=== PATIENT | male | born 1970 | race Hispanic/Latino ===

== ENCOUNTER 2016-11-05 15:10 | Emergency (ER) | payer BC ==
[2016-11-05 15:18] VITALS: BMI 25.1
[2016-11-05 15:21] VITALS: BP 125/81; PULSE 70; RESP 18; TEMP 97.6; O2SAT 98
--- NOTE | 2016-11-05 15:26 | ED PDOC ---
Arrival/HPI - General Chief Complaint: Back Pain Time Seen by Provider: 11/05/16 15:19 Historian: Patient - History of Present Illness Narrative History of Present Illness (Text): 11/05/16 15:23 46yo male present with complaint of lower back pain x 2days. He notes chronic history of back pain secondary to bulging disc of his L4-L5. States he saw pain management in the past and was given 3epidurals. The pain resolved for few years until yesterday. States pain is with movement. Described pain as "pulling ", 01/18. Did not take any analgesic. Denies abdominal pain, trauma, urinary symptoms, saddle anesthesia, focal weakness, urinary/fecal incontinence, any other complaint. Past Medical History - Provider Review Nursing Documentation Reviewed: Yes - Infectious Disease Hx of Infectious Diseases: None - Psychiatric Hx Substance Use: No - Anesthesia Hx Anesthesia: No Family/Social History - Physician Review Nursing Documentation Reviewed: Yes Family/Social History: Unknown Family HX Smoking Status: Never Smoked Hx Alcohol Use: Yes Frequency of alcohol use: Socially Hx Substance Use: No Allergies/Home Meds Allergies/Adverse Reactions: Allergies No Known Allergies Allergy (Verified 11/05/16 15:17) Review of Systems - Physician Review All systems were reviewed & negative as marked: Yes - Review of Systems Constitutional: Normal Eyes: Normal ENT: Normal Respiratory: Normal Cardiovascular: Normal Gastrointestinal: Normal Genitourinary Male: Normal Musculoskeletal: Back Pain Skin: Normal Neurological: Normal Endocrine: Normal Hemo/Lymphatic: Normal Psychiatric: Normal Physical Exam Vital Signs Reviewed: Yes Vital Signs Temp Pulse Resp BP Pulse Ox 11/05/16 15:21 97.6 F 70 18 125/81 98 Temperature: Afebrile Blood Pressure: Normal Pulse: Regular Respiratory Rate: Normal Appearance: Positive for: Well-Appearing, Non-Toxic, Comfortable Pain Distress: None Mental Status: Positive for: Alert and Oriented X 3 - Systems Exam Head: Present: Atraumatic, Normocephalic Pupils: Present: PERRL Extroacular Muscles: Present: EOMI Conjunctiva: Present: Normal Mouth: Present: Moist Mucous Membranes Neck: Present: Normal Range of Motion Respiratory/Chest: Present: Clear to Auscultation, Good Air Exchange. No: Respiratory Distress, Accessory Muscle Use Cardiovascular: Present: Regular Rate and Rhythm, Normal S1, S2. No: Murmurs Abdomen: Present: Normal Bowel Sounds. No: Tenderness, Distention, Peritoneal Signs Back: Present: Pain with Leg Raise (Right leg). No: Midline Tenderness, Paraspinal Tenderness Upper Extremity: Present: Normal Inspection. No: Cyanosis, Edema Lower Extremity: Present: Normal Inspection. No: Edema Neurological: Present: GCS=15, CN II-XII Intact, Speech Normal Skin: Present: Warm, Dry, Normal Color. No: Rashes Psychiatric: Present: Alert, Oriented x 3, Normal Insight, Normal Concentration Medical Decision Making ED Course and Treatment: 11/05/16 16:15 PT in ED for stated history. He was neurological intact and ambulatory in ED. Toradol, Valium and Decadron was ordered will re evaluate pt. 11/05/16 18:21 Pt states his pain improved on re evaluation, asked to be DC home. He was DC with Naprosyn and flexeril. Referred to his PMD/ortho. TRT ED for any any new or worsening symptoms - Medication Orders Current Medication Orders: Discontinued Medications Dexamethasone (Decadron Inj) 10 mg IVP STAT STA Stop: 11/05/16 15:35 Last Admin: 11/05/16 15:52 Dose: 10 mg Diazepam (Valium) 5 mg IVP ONCE ONE PRN Reason: Protocol Stop: 11/05/16 15:34 Last Admin: 11/05/16 15:52 Dose: 5 mg Ketorolac Tromethamine (Toradol) 30 mg IVP STAT STA Stop: 11/05/16 15:34 Last Admin: 11/05/16 15:51 Dose: 30 mg Disposition/Present on Arrival - Present on Arrival Any Indicators Present on Arrival: No History of DVT/PE: No History of Uncontrolled Diabetes: No Urinary Catheter: No History of Decub. Ulcer: No History Surgical Site Infection Following: None - Disposition Have Diagnosis and Disposition been Completed?: Yes Diagnosis: Back pain Disposition: HOME/ ROUTINE Disposition Time: 16:25 Patient Plan: Discharge Condition: STABLE Discharge Instructions (ExitCare): Back Pain (ED) Additional Instructions: Follow up with your Doctor/Orthopedist Return to ED for any new or worsening symptoms Prescriptions: Cyclobenzaprine [Cyclobenzaprine HCl] 10 mg PO TID #12 tab Naproxen [Naprosyn] 500 mg PO BID #20 tablet Referrals: Dwayne Flores MD [Primary Care Provider] - Follow up with primary Gama Cartagena III, MD [Medical Doctor] - Follow up with primary
[2016-11-05] MEDS ORDERED: diaZEpam 10 mg/2 ml Inj IVP ONE (15:33)
== END 2016-11-05 16:35 | disposition home or self-care (01) ==
LOC: ED 15:10
DX: M54.5 Low back pain (principal)
CPT/HCPCS: 96374; 96375; 99282; J1100; J1885; J3360